=== PATIENT | male | born 1955 | race Two or more races ===

== ENCOUNTER 2023-10-05 09:28 | Observation (INO) ==
--- NOTE | 2023-09-02 10:23 | PAT Medication Instructions ---
Medication Instructions Date of Service September 02, 2023 Home Medications coenzyme Q10 100 mg capsule (CoQ-10) 100 mg PO QAM lisinopril 2.5 mg tablet 2.5 mg PO QAM metformin 500 mg tablet 500 mg PO QAM rosuvastatin 20 mg tablet 20 mg PO QAM STOP taking 2 weeks before surgery (or as soon as possible if surgery is within 2 weeks) coenzyme Q10 100 mg capsule (CoQ-10) 100 mg PO QAM DO NOT take the morning of surgery lisinopril 2.5 mg tablet 2.5 mg PO QAM metformin 500 mg tablet 500 mg PO QAM Take morning of surgery With a small sip of water, OTHERWISE NOTHING TO EAT OR DRINK AFTER MIDNIGHT: rosuvastatin 20 mg tablet 20 mg PO QAM Other Notes If you have any questions please call us at [phone] or [phone] or [phone] or [phone]
--- NOTE | 2023-09-10 11:50 | Anesthesiology Consultation ---
Date of Service September 10, 2023 Assessment & Plan (1) Encounter for pre-operative examination: - Outpatient joint assessment: Patient is currently scheduled for inpatient pathway. If re-evaluated and patient/surgeon requests outpatient pathway, patient is acceptable candidate for outpatient joint program from anesthesia standpoint pending surgeon's office assessment of pt motivation/support/completion of same day joint program preop requirements. Chart Review Chart Review: Acceptable Risk for Surgery and Patient seen in Pre Admission Testing Teaching & Discussion Pre-Anesthesia Teaching/Discussion Notes: Instructed NPO after midnight before surgery, except medications with 15 cc of water. Medication instructions provided according to the PAT guidelines. History Surgery Operation Date: 10/05/23 07:00 Proposed Procedures p Right Total Knee Arthroplasty - Spike Warren MD Height/Weight Height: 6 ft 3 in Weight: 151.7 kg Allergies Allergy/AdvReac Type Severity Reaction Status Date / Time No Known Allergies Allergy Verified 09/02/23 09:38 Medications Home Medications Medication Instructions Recorded Confirmed Last Taken coenzyme Q10 100 mg capsule 100 mg PO QAM 09/02/23 09/02/23 Unknown (CoQ-10) lisinopril 2.5 mg tablet 2.5 mg PO QAM 09/02/23 09/02/23 Unknown metformin 500 mg tablet 500 mg PO QAM 09/02/23 09/02/23 Unknown rosuvastatin 20 mg tablet 20 mg PO QAM 09/02/23 09/02/23 Unknown Past Medical History Medical History (Updated 09/10/23 @ 11:53 by Georgia Murphy PA-C) BPH (benign prostatic hyperplasia) Diabetes mellitus, type 2 NIDDM History of COVID-2021--mild symptoms, no symptoms now History of gout Hyperlipidemia Hypertension controlled, stable per pt Morbid obesity with BMI of 40.0-44.9, adult Osteoarthritis Patient denies h/o stroke, seizures, heart attack, heart failure, blood clots/DVTs or blood transfusions. Exercise / Class Metabolic Activity II 4-5 Yardwork/Stairs/Walk up hill (ambulates with cane, denies chest discomfort or shortness of breath with 1 FOS) Past Family History Family History Other No family history of adverse response to anesthesia Past Surgical History Surgical History History of colonoscopy History of tonsillectomy and adenoidectomy History of tooth extraction History of total left hip replacement Past Anesthesia History No Hx of Anesthesia Complications and No Family Hx of Anesthesia Complications History of PONV No Hx of PONV and No Hx of Motion Sickness Social History Smoking Status: Never smoker Do You Dip or Chew Tobacco: Yes (chews (advised on policy)) Hx Alcohol Use: Yes Alcohol type: beer and hard liquor alcohol intake frequency: a few times a week Hx Substance Use: No substance use type: does not use Review of Systems Snoring, denies witnessed apneas. Patient denies chest pain, shortness of breath, dyspnea on exertion, reflux, fever, chills, cough, wheezing, or palpitations. Physical Exam Vital Signs Vitals BP 124/74 P 69 TEMP 97.4 SP02 94% on RA RESP 17 Physical Patient resting comfortably in chair in no acute distress, alert and oriented, responding appropriately throughout visit Full cervical extension range of motion without pain TMD < 3 finger breadths Mallampati Score 3 Dentition: several caps/crowns, denies chipped or loose teeth, implants or bridges Lungs: normal respiratory effort. Good air movement, clear throughout to auscultation, no adventitious breath sounds Cardiac: regular rate and rhythm, no murmurs noted Carotid arteries: negative bruit bilat Lab Results Anesthesia Preop Results Results Anesthesia Widget: WBC 9.87 K/ul (4.8-10.8) 09/10/23 Hgb 15.2 g/dl (14.0-18.0) 09/10/23 Hct 46.6 % (42.0-52.0) 09/10/23 Plt 274 K/uL (130-400) 09/10/23 Na 140 mmol/L (136-145) 09/10/23 K 4.3 mmol/L (3.5-5.1) 09/10/23 Cl 105 mmol/L (98-107) 09/10/23 CO2 27 mmol/L (21-32) 09/10/23 BUN 22 mg/dl (6-23) 09/10/23 Creat 1.08 mg/dl (0.6-1.4) 09/10/23 Glucose Level 101 mg/dl (70-99(Fasting)) H 09/10/23 PT 11.6 Seconds (9.0-12.0) 09/10/23 PTT 30 Seconds (21-31) 09/10/23 INR 1.1 (0.9-1.1) 09/10/23 HA1c 6.2 % (4.5-5.6) H 09/10/23 Blood Type A Positive 09/10/23 Antibody Screen NEGATIVE 09/10/23 Testing Electrocardiogram Date: 09/10/23 NSR, rate 65 bpm Chest X-Ray Date: 09/10/23 No active disease in the chest.
[~2023-10-05 09:28] MED LIST: MIDAZOLAM HCL 1 MG/ML 2ML VIAL ONE; ROPIVACAINE 0.5% 5 MG/ML 30 ML VIAL ONE
[2023-10-05] MEDS ORDERED: BUPIVACAINE 0.5 % 5 MG/1 ML PF 10ML VIAL ONE (09:42)
[2023-10-05] MEDS: LR 60ML/HR IV SCH (10:17)
[2023-10-05] MEDS: LR 500ML BOLUS, THEN 15ML/HR IV SCH (10:17)
[2023-10-05] MEDS: dexAMETHasone**PF** 10 MG/ML VIAL IV SCH (10:26)
[2023-10-05] MEDS: CeleBREX 200 MG CAP PO SCH (10:26)
[2023-10-05] MEDS: ACETAMINOPHEN 500 MG TAB PO SCH ×2 (10:26→21:17)
[2023-10-05] MEDS: METOCLOPRAMIDE HCL 10 MG TABLET PO SCH (10:27)
[2023-10-05] MEDS: GABAPENTIN 300 MG CAP PO SCH (10:27)
[2023-10-05] MEDS: traMADol HCL 50 MG TABLET PO SCH (10:27)
[2023-10-05] MEDS: FAMOTIDINE 20 MG TAB PO SCH (10:27)
[2023-10-05] MEDS: oxyCODONE HCL 10 MG TABCR (OxyCONTIN) PO SCH (10:27)
--- NOTE | 2023-10-05 10:34 | History & Physical Bridge Note ---
Date of Service October 05, 2023 History & Physical Bridge Note I have examined the patient, reviewed the History & Physical and in the interval since the performance of the History & Physical I have noted the following changes of clinical significance: no changes noted
[2023-10-05] MEDS ORDERED: ATROPINE SULFATE 0.1 MG/ML 10ML SYR IV PRN (10:36)
[2023-10-05] MEDS ORDERED: KETOROLAC 30 MG/ML VIAL IV PRN (10:36)
[2023-10-05] MEDS ORDERED: HYDROmorphone INJ 1 MG/ML SYRINGE IV PRN ×2 (10:36→16:18)
[2023-10-05] MEDS ORDERED: ONDANSETRON INJ 2 MG/ML 2 ML VIAL IV PRN ×2 (10:36→16:18)
[2023-10-05] MEDS ORDERED: ePHEDrine sulfate 50 MG/ML AMP IV PRN (10:36)
[2023-10-05] MEDS: TRANEXAMIC ACID 1,000 MG **IV Pre-op IV SCH (10:44)
[2023-10-05] MEDS: ceFAZolin 3000MG 3,000 MG/72.5 ML BAG IV SCH (11:05)
[2023-10-05] MEDS: ORTHO JOINT ANESTHETIC ONE (11:51)
[2023-10-05] MEDS ORDERED: ePHEDrine sulfate 50 MG/5 ML SYR ONE (11:55)
[2023-10-05] MEDS ORDERED: PROPOFOL IV EMULSION 10 MG/ML 20 ML VIAL IV ONE ×5 (11:55→14:18)
[2023-10-05] MEDS ORDERED: PHENYLEPHRINE 100MCG/ML 10ML SYR IV ONE (11:55)
[2023-10-05] MEDS ORDERED: ONDANSETRON INJ 2 MG/ML 2 ML VIAL ONE ×2 (11:55→14:22)
[2023-10-05] MEDS ORDERED: fentaNYL citrate PF 100 MCG/2 ML VIAL ONE (12:59)
[2023-10-05] MEDS: VANCOMYCIN HCL 1000MG/20ML VIAL ONE (13:48)
[2023-10-05] MEDS: ROPIV 0.5% 246mg, Ketorolac 30mg, EPINEPHrine 0.5mg in NSS INFIL SCH (13:49)
--- NOTE | 2023-10-05 14:32 | Post Operative Brief Note ---
Immediate Post Op Note v1 Date of Surgery October 05, 2023 Pre & Post Diagnosis Operation Date: 10/05/23 11:10 Pre-Op Diagnosis: Right Knee Degenerative Joint Disease Post-Op Diagnosis: Right Knee Degenerative Joint Disease I identified the patient and participated in the time-out.: Yes Procedure Operation Date: 10/05/23 11:10 Actual Procedures p Right Total Knee Arthroplasty(Right) - Spike Warren MD Surgeon Spike Warren MD Dramatic Critic Kayla Forrest no resident or fellow available Estimated Blood Loss 50 Findings Consistent with Post-Op Diagnosis Specimens None Anesthesia Type MAC Spinal Regional Complications none Disposition Accompanied Patient To Recovery: No Disposition: Recovery Room
[2023-10-05] MEDS ORDERED: SODIUM CHLORIDE 0.9% PF INJ 10 ML VIAL ONE (14:37)
[2023-10-05] MEDS ORDERED: ceFAZolin 330 MG/ML 1 GM VIAL ONE (14:37)
--- NOTE | 2023-10-05 15:01 | Operative Report ---
Post Operative Report Pre & Post Diagnosis Operation Date: 10/05/23 11:10 Pre-Op Diagnosis: Right Knee Degenerative Joint Disease Post-Op Diagnosis: Right Knee Degenerative Joint Disease I identified the patient and participated in the time-out.: Yes Procedure Operation Date: 10/05/23 11:10 Actual Procedures p Right Total Knee Arthroplasty(Right) - Spike Warren MD Surgeon Spike Warren M.D. Cement Storage Worker Kayla Forrest no resident or fellow available Estimated Blood Loss 50 Findings Consistent with Post-Op Diagnosis DJD right knee Specimens bone and soft tissue Anesthesia Type MAC Spinal Regional Description of Procedure Patient was taken to the operating room placed under IV sedation with spinal anesthesia and peripheral nerve block. Time out was performed. She was given 2 g of IV Ancef for surgical prophylaxis 1 g of TXA for bleeding prophylaxis. She was prepped and draped in routine sterile fashion. I was present during the entire case, please see Dr. Warren's operative report for further details regarding today's procedure. Patient was awakened and transferred to the recovery room in stable condition. I attest to the content of the Intraoperative Record and any orders documented therein. Any exceptions are noted below.
--- OUTSIDE RECORDS SUMMARY | 2023-10-05 15:17 | External Medical Summary | Continuity of Care Document ---
Author Name Unknown Organization [facility] [address] [id number] Address [address] [place] [id number] Encounter [facility] [id number] Date(s): 09/10/23 - 09/10/23 [facility] [address] [facility] [address] [facility] [address] [place] [id number] Encounter Diagnosis Right knee DJD(Discharge Diagnosis) - 09/10/23 Discharge Disposition: Home or Self Care Attending Physician: NANCY Forrest, Kayla Avitai Referring Physician: MD Briana, Spike Jones Allergies, Adverse Reactions, Alerts No Known Allergies Medications Aleve Start: 08/01/21 8:08:00 EST Start Date: 08/01/21 Status: Ordered metFORMIN 500 mg oral tablet Start: 01/12/22 16:00:00 EDT Start Date: 01/12/22 Status: Ordered rosuvastatin 20 mg oral tablet Start: 05/12/23 13:42:00 EST Start Date: 05/12/23 Status: Ordered Mental Status 09/10/23 Barriers to Learning one year None evide nt Mandatory Health Literacy Documentation Yes Health Literacy Communication Barriers N ever Primary Language Greenlandic Problem List Condition Confirmation Course Effective Dates Status [facility] atus Informant Degenerative arthritis of knee, bilateral Confirmed Active History of hip replacement Confirmed Active Right knee DJD Confirmed Active Diagnosis Diagnosis Type Effective Dates Health Status inical Service Informant Right knee DJD Discharge Diagnosis 09/10/23 Vital Signs Most recent to oldest [Reference Range]: 1 Height 189 cm (09/10/23 10:35 AM) Patient Weight 152 kg (09/10/23 10:35 AM) Body Mass Index 42.55 kg/m2 (09/10/23 10:35 AM) Temperature [36.5-37.9 DegC] 36.4 DegC *LOW* (09/10/23 10:35 AM) Heart Rate 74 bpm (09/10/23 10:35 AM) Blood Pressure 170/80mmHg (09/10/23 10:35 AM) Cuff Pulse Pressure 90 mmHg (09/10/23 10:35 AM) Social History Social History Type Response Smoking Status Never smoked cigaret dora Sex Male Pre-OP H & P * NANCY Forrest Jennifer R: PERFORM Event Display: Pre-OP H & P Authored Date: [id number] Name:NITHYA BREAUX Patient Number:[id number] :1955 Date of Service:09/10/2023 Chief Complaint R knee pre op History of Present Illness Peggy Thompson presents today fora preoperative history and physical. He is scheduled for right total knee arthroplasty with Dr. Warren on October 05, 2023. He has pain on a daily basis. It is intermittent throughout the day and sharpness in intensity. He has no recent activity. Most of his pain is on the anterior medial aspect of the right knee. It is worse with activity. He uses a cane to assist with ambulation due to concerns that his left knee may give out. He has limited in his ability especially if walking on a harder cement surfaceswhich is about once per week. He reports start up stiffness but no significant pain at rest or at night with sleeping. He has had previous cortisone injections and viscosupplementation which had decreased the amount of pain temporarily. He is also tried [id number] NSAIDs such as Aleve which she takes on a intermittent basis for pain relief. He does have times when his pain is a 0 out of 10 but pain can escalate to an 8 or 9 out of 10 on a daily basis. Due to his failure of conservative treatment and worsening symptoms he wishes to proceed with an elective total knee arthroplasty. Review of Systems Denies any recent cough, cold, fevers, chills or flulike symptoms. He denies any lightheadedness, dizziness, syncopal episodes, headaches, migraines or seizures. Denies any bleeding or clotting disorders or history of DVT or pulmonary embolism. Denies any recent hospitalizations. Denies any historyof metal sensitivity, latex allergy or MRSA. Denies any shortness of breath or chest pain. Denies abdominal pain, heartburn, indigestion, nausea, vomiting, diarrhea or constipation. Denies any urinary tract infections. Denies any hearing or vision changes. Denies any dental problems. Physical Exam Vitals & Measurements T:36.4C HR:74(Monitored) BP:170/80 SpO2:97% HT:189cm WT:152.000kg(Dosing) WT:152kg BMI:42.55 BMI:42.55 kg/m2 Vitals:Last Updated 09/10/23 10:35 Date Temp BP Location Pulse RR SpO2 Pain 09/10/23 36.4 170/80 74 97 09/10/23 3 05/12/23 0 Height and Weight:Last Updated 09/10/23 10:35 Date BMI Wt(kg) Wt(lb) Method Ht(cm) (ft-in) Method 09/10/23 42.55 152 334 Standing Scale 189 6-2 05/12/23 42.55 152 334 Standing Scale 189 6-2 Standing 01/12/22 43.01 152 334 Standing Scale 188 6-2 General:Well-dressed, well-nourished. Normal mood and affect. Alert and oriented x3. HEENT:Head: Atraumatic, normocephalic. Eyes: Extraocular movements intact, pupils equal round and reactive to light, sclera normal. Ears: Ears grossly normal, TMs are clear normal light reflex.Nose: Nares are patent bilaterally. Throat: Oropharynx clear mucous membranes moist good dentition uvula midline. Neck:Supple, no lymphadenopathy, nontender palpation, full range of motion. Cardiac:Regular rate and rhythm, normal S1, S2. No murmurs, rubs or gallops appreciated. Lungs:Clear to auscultation bilaterally. No adventitious sounds. No accessory muscle use. Abdomen:Soft, nontender, nondistended, normal bowel sounds heard in all 4 quadrants. Extremities: Focusing on the patient'srightlower extremity: Gaitminor limp Significant VarusAlignment, right greater than left 1+DP and1+PT pulses Capillary refill less than 2 seconds Sensationintact to light touch Motor strength5/5: Knee flexion and extension/ Ankle plantarflexion and dorsiflexion/ ankle inversion and eversion/ Big toe extension Knee (right) ROM: 0/ 10/ 110 Hip ROM:Painless AbsentEffusion Trace pre-tibial edema Ligament exam: ACLIntact,Endpoint intact PCLIntact,Endpoint intact MCLIntact,Endpoint intact Fixed varus deformity without laxity Diagnostic Results I obtained and personally interpreted 4 views of both knees which shows bone on one medial compartment arthritis bilaterally and bone spurs. No fracture Assessment/Plan 1.Right knee DJD Patient is scheduled for an elective right total knee arthroplasty on October 05, [address] Warren.Risk and complications of the procedure were explained to the patient and include but are not limited to infection, pain, bleeding, scarring, nerve and blood vessel damage, wound problems, weakness, stiffness, incomplete relief of symptoms, hardware failure, loosening, wear, fracture, tendon or ligament injury, blood clots, embolisms, heart attack, stroke and . All questions were answered and informed consent was obtained. Later today at preadmission testing he will have a preoperative CBC, BMP, PT, PTT, type and screen, hemoglobin A1c, chest x-ray, EKG and leg length x-ray. He will have preoperative medical clearance from his family physician. He does not need cardiac clearance prior to surgery. He was instructed on the CHG wipes preoperatively. He has a walker and a cane for use at home after surgery. Postoperatively he would like to go home with home health. He will attend outpatient physical therapy closer to his home when able. We will place him on Eliquis 2.5 mg p.o. twice daily for 2 to 4 weeks after surgery for DVT prophylaxis. Postoperative course was discussed. All questions were answered. He knows to call with any further problems, questions or concerns. This chart was completed utilizing [employer] voice recognition software. Grammatical errors, random word insertions, pronoun errors, and in complete sentences are an occasional consequence of the system. Any questions or concerns about the content, text, or information contained within the body of this dictation should be addressed directly to the provider for clarification. Problem List/Past Medical History Ongoing Degenerative arthritis of knee, bilateral History of hip replacement Right knee DJD High cholesterol Procedure/Surgical History left total hip arthroplasty Medications Home metFORMIN(metFORMIN 500 mg oral tablet) naproxen(Aleve) rosuvastatin(rosuvastatin 20 mg oral tablet) Allergies NKA Social History Smoking Status Never smoked cigarettes Drinks approximately ETOH use. Denies recreational drug use. 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 Uses a cane to assist with ambulation. Family History Reviewed and noncontributory. Electronic Signature on File Electronically Reviewed/Signed by: Kayla Forrest PA-C Author Signature Dt/Tm:09/10/2023 02:08PM Division of Sports Medicine Electronically Reviewed/Signed by: Spike Warren MD Cosigner Signature Dt/Tm: 09/10/2023 03:51 PM Division of Sports Medicine [facility] Patient Care team information Care Team Related Persons Name: MILTON BREAUXITA Address: home [address] [place] [phone] Name: ZHANE BREAUX
--- NOTE | 2023-10-05 15:27 | Anesthesiology Progress Note ---
Date of Service October 05, 2023 Anesthesia Post Procedure Vital Signs Vital Signs: Temp Pulse Pulse Resp BP Pulse Ox O2 Del Method 10/05/23 15:20 96 H 14 130/85 95 Nasal Cannula 10/05/23 15:10 99 H 15 127/80 97 Oxymask 10/05/23 15:00 36.2 C L 99 H 15 134/79 95 Oxymask 10/05/23 10:02 36.5 C 71 20 125/80 95 Room Air O2 Flow Rate 10/05/23 15:20 4 10/05/23 15:10 14 10/05/23 15:00 14 10/05/23 10:02 Transfer of Care Handoff Completed per policy Notes Mental Status: alert / awake / arousable and participated in evaluation Nausea / Vomiting: adequately controlled Pain: adequately controlled Airway Patency, RR, SpO2: stable & adequate BP & HR: stable & adequate Hydration State: stable & adequate Neuraxial Anesthesia: was administered and sensory block is resolving Anesthetic Complications: no major complications apparent and Pt Satisfied with anesthetic care
--- NOTE | 2023-10-05 15:29 | XRay Report ---
XR knee RT 1 or 2V routine HISTORY: 68 years-old Male Surgical Post Op right knee arthroplasty COMPARISON: 09/10/2023 TECHNIQUE: 2 views of the right knee FINDINGS: Total joint arthroplasty with patellar resurfacing. Anterior midline skin yaron with expected posto perative soft tissue swelling and deep tissue air. Corticated ossifications are noted along the poste rior margin of the knee. No acute fracture or dislocation. IMPRESSION: Satisfactory alignment of the total joint arthroplasty. ACT 112: Negative or not required by law. The above report was generated using voice recognition software. It may contain grammatical, syntax o r spelling errors. Electronically signed by: Jeff Buckner M.D. 10/05/2023 3:28 PM
[2023-10-05] MEDS ORDERED: hydrALAZINE HCL 20 MG/ML VIAL IV PRN (16:18)
[2023-10-05] MEDS ORDERED: MAGNESIUM HYDROXIDE SUSP 30 ML UDC PO PRN (16:18)
[2023-10-05] MEDS ORDERED: diphenhydrAMINE 50 MG/ML VIAL IV PRN (16:18)
[2023-10-05] MEDS ORDERED: METOCLOPRAMIDE HCL INJ 5 MG/ML 2 ML VIAL IV PRN (16:18)
[2023-10-05] MEDS ORDERED: PHARMACY GLYCEMIC MGMT CONSULT PRN (16:18)
[2023-10-05] MEDS ORDERED: bisacodyL 10 MG SUPP PR PRN (16:18)
[2023-10-05] MEDS ORDERED: HYDROmorphone INJ 0.5 MG/0.5 ML SYR IV PRN (16:18)
[2023-10-05] MEDS ORDERED: NALOXONE HCL 0.4 MG/1 ML VIAL/CARP IV PRN (16:18)
[2023-10-05] MEDS: oxyCODONE HCL IR 5 MG TAB (IMMEDIATE RELEASE) PO PRN (16:23)
[2023-10-05] MEDS: oxyCODONE HCL IR 5 MG TAB (IMMEDIATE RELEASE) ONE (16:40)
[2023-10-05] MEDS ORDERED: GLUCOSE 40% GEL 15 GM TUBE PO PRN (16:45)
[2023-10-05] MEDS ORDERED: GLUCAGON FOR INJ 1 MG VIAL IM PRN (16:45)
[2023-10-05] MEDS ORDERED: GLUCOSE 10 TAB/TUBE PO PRN (16:45)
[2023-10-05] MEDS ORDERED: DEXTROSE 50% 50 ML SYRINGE IV PRN (16:45)
[2023-10-05] MEDS ORDERED: CARBOHYDRATES FOR HYPOGLYCEMIA PO PRN (16:45)
[2023-10-05] MEDS: SODIUM CHLORIDE 0.9% 1,000 ML IV SCH (17:33)
[2023-10-05] MEDS: KETOROLAC TROMETHAMINE 15 MG/ML VIAL IV SCH (17:38)
[2023-10-05] MEDS: traMADol HCL 50 MG TABLET PO PRN (18:11)
[2023-10-05] MEDS: LANTUS PER UNIT CHARGE SC ONE (18:36)
--- NOTE | 2023-10-05 19:46 | Orthopedic Progress Note ---
Date of Service October 05, 2023 Assessment & Plan (1) Status post knee replacement: Plan: Surgical results discussed. X-rays show good positioning of components without complication. The plan is postop antibiotics pain control elevation icing PT OT blood thinner starting in the morning. Diabetes consult with pharmacy. Admission and Anticipated Discharge Date Admission Date: October 05, 2023 Subjective Doing well. No problems reported. Pain is well-controlled. Physical Exam 2 Physical Exam: Dressing clean and dry. I elevated on 2 pillows. 5 out of 5 ankle and toe plantarflexion dorsiflexion inversion eversion. DP and PT pulses are 1+. Sensation is intact throughout the foot Results & Data Vital Signs (Past 12 Hours) Vital Signs Temp Pulse Pulse Pulse Resp BP Pulse Ox 10/05/23 19:14 36.4 C L 89 16 124/72 96 10/05/23 18:20 36.7 C 64 14 129/75 94 10/05/23 17:48 36.5 C 76 18 144/82 H 94 10/05/23 17:44 10/05/23 17:20 36.5 C 84 16 143/83 H 96 10/05/23 17:00 36.4 C L 88 14 152/85 H 94 10/05/23 16:30 90 14 121/80 92 10/05/23 16:15 88 16 142/65 H 93 10/05/23 16:00 86 14 112/75 92 10/05/23 15:45 89 16 107/76 93 10/05/23 15:30 36.4 C L 97 H 20 124/72 94 10/05/23 15:20 96 H 14 130/85 95 10/05/23 15:10 99 H 15 127/80 97 10/05/23 15:00 97 H 20 124/72 94 10/05/23 15:00 36.2 C L 99 H 15 134/79 95 10/05/23 10:02 36.5 C 71 20 125/80 95 O2 Del Method O2 Flow Rate 10/05/23 19:14 Room Air 10/05/23 18:20 Room Air 10/05/23 17:48 Room Air 10/05/23 17:44 Room Air 10/05/23 17:20 Nasal Cannula 2 10/05/23 17:00 Nasal Cannula 2 10/05/23 16:30 Room Air 10/05/23 16:15 Room Air 10/05/23 16:00 Room Air 10/05/23 15:45 Room Air 10/05/23 15:30 Nasal Cannula 2 10/05/23 15:20 Nasal Cannula 4 10/05/23 15:10 Oxymask 14 10/05/23 15:00 Nasal Cannula 2 10/05/23 15:00 Oxymask 14 10/05/23 10:02 Room Air
[2023-10-05] MEDS: DOCUSATE SODIUM 100 MG CAP PO SCH (20:21)
[2023-10-05] MEDS: SENNA 8.6 MG TAB PO SCH (20:21)
[2023-10-05] MEDS: INSULIN ASPART PER UNIT CHARGE SC SCH (20:26)
[2023-10-05] MEDS: TRANEXAMIC ACID / 0.7% NACL 1,000 MG/100 ML BAG IV SCH (20:59)
[2023-10-05] MEDS: ceFAZolin 2000MG 2,000 MG/15 ML SYR IV SCH (21:16)
[2023-10-06 07:20] LABS: BUN Creatinine Ratio 22.8 (10-20); Calcium 8.6 mg/dl (8.6-10.3); Creatinine Clr Calc Pharmacy 89.6 ml/min; Est GFR (African American) 67.3 ml/min; Est GFR (Non-African American) 58.1 ml/min; Potassium 4.5 mmol/L (3.5-5.1)
[2023-10-06] MEDS: MULTIVITAMIN TAB PO SCH (08:06)
[2023-10-06] MEDS: ROSUVASTATIN CALCIUM 20 MG TAB PO SCH (08:06)
[2023-10-06] MEDS: lisinopril 2.5 MG TAB PO SCH (08:06)
[2023-10-06] MEDS: dexAMETHasone 4 MG TAB PO SCH (08:06)
[2023-10-06] MEDS: APIXABAN 2.5 MG TAB PO SCH (08:06)
[2023-10-06] MEDS: LANTUS PER UNIT CHARGE SC ONE (08:09)
[2023-10-06] MEDS ORDERED: NON-FORMULARY MEDICATION (Coenzyme Q10 [Coq-10] 100 mg Capsule) PO SCH (09:00)
--- NOTE | 2023-10-06 10:05 | Pharmacy Report ---
Pharmacy Glycemic Short Note 2 - Date of Service October 06, 2023 - Glycemic Short BSG Results (Last 24 hours): 10/05/23 10/05/23 10/05/23 15:04 17:37 22:59 Glucose POC Glucose 188 H 192 H 127 H 10/06/23 10/06/23 10/06/23 05:45 06:29 07:32 Glucose 158 H POC Glucose 128 H 146 H OUTPATIENT ANTIDIABETIC REGIMEN: * Metformin 500mg Daily * A1c 6.2% 09/10/23 ASSESSMENT: * 68 yo M POD1 R TKA, type 2 DM well controlled on metformin only at home. * Oral agents are not recommended for inpatient use d/t drug interactions, changing PO intake, and difficulty titrating for acute hyper/hypoglycemia. ADA recommends re-initiating outpatient oral agents 1-2 days prior to discharge if/when appropriate if they were held on admission. * Patient received 10mg dexamethasone yesterday - had 44 units of insulin, 30 units basal, fasting blood sugar of 146mg/dl today. * Patient to have Dexamethasone 8mg PO today. Will cover with another dose of Lantus and NovoLog, may need to loose CF/CR tomorrow as steroids wear off. Likely will not need basal tomorrow unless more steroids are ordered. PLAN FOR INPATIENT GLYCEMIC CONTROL: * Hold outpatient oral diabetes medications * Basal insulin * Lantus 25 units SQ x 1 dose today with PO Dexamethasone 8mg * Bolus insulin * NovoLog per scale ACHS or Q6hrs while NPO * Goal Range: Low 110 mg/dL - High 140 mg/dL * Correction Factor: 15 mg/dL/unit * Nutritional / Prandial insulin per carb ratio of 1 unit per 5 grams CHO consumed
[2023-10-06 10:19] LABS: Hematocrit (blood only) 40.6 % (42.0-52.0); Hemoglobin 13.5 g/dl (14.0-18.0); Mean Corpuscular Hemoglobin 32.8 pg (25.0-34.0); Mean Corpuscular Hgb Conc 33.3 g/dL (32.0-36.0); Mean Corpuscular Volume 98.8 fL (80.0-100.0); Platelet Count 256 K/uL (130-400); RDW Coefficient of Variation 11.9 % (11.5-14.5); RDW Standard Deviation 43.7 fL (36.4-46.3); Red Blood Count 4.11 M/uL (4.70-6.10)
--- NOTE | 2023-10-06 10:20 | Orthopedic Progress Note ---
Date of Service October 06, 2023 Assessment & Plan (1) Status post knee replacement: Plan: POD 1-right total knee arthroplasty with Dr. Warren. Physical therapy and Occupational Therapy today. Eliquis 2.5 mg p.o. twice daily for 2 to 4 weeks after surgery for DVT prophylaxis. This was started this morning. Regular diet as ordered. Resume home medications as appropriate. Ice and elevation as needed. He may weight-bear as tolerated with the knee immobilizer when out of bed and the assistance of a walker. Home with home health today. All questions were answered. Discharge instructions were reviewed. Patient understands and agrees to the plan. Admission and Anticipated Discharge Date Admission Date: October 05, 2023 Subjective Patient is doing well. No complaints of chest pain, shortness of breath, lightheadedness, dizziness, nausea or vomiting. Denies any significant pain in his right knee. His pain is well-controlled with oral medications. He would like to go home today. Physical Exam Musculoskeletal: Exam of his right lower extremity: Dressings are clean, dry and intact. No bloody drainage evident. Right ankle has full range of motion and normal strength. Distal pulses are 1+. Toes are warm. Sensation is normal throughout the right lower extremity. His knee immobilizer is in place and was opened to adequately look at the dressings. Tolerates logrolling of his right leg. Results & Data Vital Signs (Past 12 Hours) Vital Signs Temp Pulse Pulse Resp BP Pulse Ox O2 Del Method 10/06/23 07:59 36.4 C L 72 16 126/58 L 95 Room Air 10/06/23 07:51 Room Air 10/06/23 06:00 94 Room Air 10/06/23 02:44 36.8 C 70 16 134/69 96 Nasal Cannula 10/05/23 22:48 36.9 C 65 16 120/72 96 Nasal Cannula O2 Flow Rate 10/06/23 07:59 10/06/23 07:51 10/06/23 06:00 10/06/23 02:44 2 10/05/23 22:48 2 Laboratory Results 10/06/23 10/06/23 10/06/23 Range/Units 07:32 06:29 05:45 WBC Pending RBC Pending Hgb Pending Hct Pending MCV Pending MCH Pending MCHC Pending Plt Count Pending Sodium 138 (136-145) mmol/L Potassium 4.5 (3.5-5.1) mmol/L Chloride 104 (98-107) mmol/L Carbon Dioxide 28 (21-32) mmol/L Anion Gap 6 (3-11) BUN 29 H (6-23) mg/dl Creatinine 1.27 (0.6-1.4) mg/dl Est Cr Clr Drug Dosing 89.6 ml/min Est GFR ( Amer) 67.3 ml/min Est GFR (Non-Af Amer) 58.1 ml/min BUN/Creatinine Ratio 22.8 H (10-20) Glucose 158 H (70-99(Fasting)) mg/dl POC Glucose 146 H 128 H (70-99) mg/dl Calcium 8.6 (8.6-10.3) mg/dl 10/05/23 10/05/23 10/05/23 Range/Units 22:59 17:37 15:04 WBC RBC Hgb Hct MCV MCH MCHC Plt Count Sodium (136-145) mmol/L Potassium (3.5-5.1) mmol/L Chloride (98-107) mmol/L Carbon Dioxide (21-32) mmol/L Anion Gap (3-11) BUN (6-23) mg/dl Creatinine (0.6-1.4) mg/dl Est Cr Clr Drug Dosing ml/min Est GFR ( Amer) ml/min Est GFR (Non-Af Amer) ml/min BUN/Creatinine Ratio (10-20) Glucose (70-99(Fasting)) mg/dl POC Glucose 127 H 192 H 188 H (70-99) mg/dl Calcium (8.6-10.3) mg/dl Diagnostic Findings XR knee RT 1 or 2V routine HISTORY: 68 years-old Male Surgical Post Op right knee arthroplasty COMPARISON: 09/10/2023 TECHNIQUE: 2 views of the right knee FINDINGS: Total joint arthroplasty with patellar resurfacing. Anterior midline skin yaron with expected postoperative soft tissue swelling and deep tissue air. Corticated ossifications are noted along the posterior margin of the knee. No acute fracture or dislocation. IMPRESSION: Satisfactory alignment of the total joint arthroplasty.
--- NOTE | 2023-10-06 10:29 | Discharge Summary ---
Date of Service October 06, 2023 Discharge Data Procedures Performed Operation Date: 10/05/23 11:10 Actual Procedures p Right Total Knee Arthroplasty(Right) - Spike Warren MD Hospital Course (1) Status post knee replacement: Patient was kept in observation at [facility] after undergoing an elective right total knee arthroplasty with Dr. Warren on October 05, 2023. His surgery was performed with spinal anesthesia, IV sedation and peripheral nerve block. He tolerated the procedure well without any intraoperative complications. He was given 3 g of IV Ancef for surgical prophylaxis, which was continued for 24 hours after surgery. He was given 1 g of IV TXA preoperatively for bleeding prophylaxis. He was given a second dose 6 hours after that initial dose. He may be out of bed, weight-bear as tolerated right lower extremity with the assistance of a walker. He was instructed to use his knee immobilizer for 2 days after surgery. X-rays in the recovery room of his right knee showed a stable right knee joint prosthesis with no evidence of hardware complication or fracture. Pain medications consisted of Tylenol, oxycodone, tramadol and IV Dilaudid. He was given a bowel regimen. His home medications were continued. A glycemic consult was placed for management of his diabetes while inpatient. Physical therapy and Occupational Therapy were consulted and he was seen on postoperative day 1. He did well out of bed with ambulation and ADLs and was deemed safe for discharge to home. His pain was well-controlled during his inpatient stay. He did have an elevated white blood cell count on postoperative day 1 but no evidence of infection and most likely from a surgery and steroids pre and postoperatively. He was started on Eliquis 2.5 mg p.o. twice daily on postoperative day 1 and this will be continued for 2 to 4 weeks after surgery. So he was provided with ANIBAL stockings and AV impulse boots during his inpatient stay. He did not develop any postoperative complications during his inpatient stay. On postoperative day 1 doing very well and was deemed safe for discharge to his home. He was discharged to his home in stable condition with family. Home health arrangements have been made. He will follow-up as an outpatient as scheduled.
--- NOTE | 2023-10-07 06:58 | Operative Report ---
Post Operative Report Pre & Post Diagnosis Operation Date: 10/05/23 11:10 Pre-Op Diagnosis: Right Knee Degenerative Joint Disease Post-Op Diagnosis: Right Knee Degenerative Joint Disease I identified the patient and participated in the time-out.: Yes Procedure Operation Date: 10/05/23 11:10 Actual Procedures p Right Total Knee Arthroplasty(Right) - Spike Warren MD Surgeon Spike Warren MD Coldfusion Kayla Forrest no resident or fellow available Estimated Blood Loss 50 Findings Consistent with Post-Op Diagnosis Specimens Resected bone and soft tissue from right knee Anesthesia Type MAC Spinal Regional Disposition Accompanied Patient To Recovery: No Disposition: Recovery Room Indications Clark is 68 years old and has severe arthritis of his right knee refractory to nonsurgical treatment. He wishes to have surgery. Description of Procedure Informed consent. Patient identified. He identified the operative site as the right knee. I marked with my initials. A preoperative surgical timeout was performed and her preop dose of IV antibiotics was given. He was taken to the operating room positioned supine on the operating room table. A bump was placed under the right hip and a padded post under the right calf. A tourniquet was applied to the right thigh. The leg was prepped and draped in usual sterile fashion. DVT prophylaxis intraoperatively with mechanical devices. Postop early mobility mechanical devices and Eliquis. The examination under anesthesia revealed a fixed varus deformity with approximate 10 degree flexion contracture and knee flexion to 105. Knee motion 0/10/105. The flexion contracture may have been a few degrees beyond 10 degrees. TXA given. The leg was prepped and draped in usual sterile fashion. Limb exsanguinated with the Esmarch and tourniquet inflated to 300 mmHg. I made a midline longitudinal incision followed by medial parapatellar arthrotomy. There were grade 2 and 3 changes with osteophytes of the patella. The peripatellar synovium was debrided along with the osteophytes. The synovial reflection in the lateral gutter was released. Soft tissue on the anterior aspect the distal femur was resected. The retropatellar fat pad was also debrided. An extensile medial release was performed releasing most of the MCL initially around to the posterior medial corner of the knee. Osteophytes femur and tibia were profound and were also debrided. The knee was unable to be flexed. The ACL was deficient. PCL was resected and notch osteophytes were removed. I had to do a little bit more releasing but was eventually able to get the knee subluxated and the retractor was inserted. The lateral compartment showed intact meniscus which was debrided marginal osteophytes and intact cartilage. Medially there was eburnated and warm bone and large osteophytes which were debrided. There was bipolar bone loss. The intercondylar eminences were worn. Grade 4 changes bipolar medial compartment. I drilled a pilot supervisor hole into the proximal tibia just anterior to the tibial spines and advanced an intramedullary alignment sixto down to the ankle. I then took the 3 degree cutting block and aligned with the tibial tubercle and set to cut 10 mm off of the lateral side which corresponded to a 2 mm cut medially. This guide was pinned in the place. The extra medullary alignment sixto was applied and found that the cut was going to be in varus. I therefore kept the sixto in place and aligned it to the second metatarsal and bisecting the ankle joint after removing the lateral pin and then repinned it into this position. I rechecked with the knee straight and bent and found acceptable alignment. There was now a skim cut medially and more like a 12 cut laterally. I went ahead and made this cut protecting the patellar tendon. The slope was appropriate and might of even had slightly more than 3 degrees of posterior slope. This resulted in a skim cut medially with an area of defect posteromedially. A pilot supervisor hole was drilled in the distal femur followed by insertion of the distal femoral cutting guide set at 5 degrees right knee valgus based upon preoperative templating. Due to the flexion contracture 11 mm thick cut was made. This was distal to the collateral ligaments and the cut was made. The space was a slightly asymmetric but very tight. I could not get the small spacer in place. I therefore went ahead and did more medial releasing and then recut an additional 2 mm off of the distal femur making sure that I was still distal to the collateral ligaments. I could not get the spacer in but there was still some ongoing medial tightness. I then went ahead and marked out the epicondylar axis and applied the distal femoral sizing guide. The femur sized to a 10. 3 degrees external rotation. This was pinned in the place and the cuts were made protecting the collateral ligaments. The flexion gap was rectangular and would accommodate a 5 mm thick spacer. Large posterior osteophytes were removed. The box cutting guide was applied lateralized and the box cut was made. Previously the tibia had been sized to a 10 as well. Lateralizing the tibia resulted in only about 3 to 5 mm of the medial bone defect being underneath the tibial baseplate. The extra tibial bone was marked and later part of this was resected in order to lengthen the MCL. The femoral implant was applied and the lug holes were drilled. On the tibia if the implant was lateralized and the keel was prepared with the drill and punch. Rotation was set on the tibial tubercle. The knee was then reduced with a 5 mm spacer.. Previous to this and prior to implanting the trials I rebalance the knee. This necessitated further posterior medial release and further release of the medial structures off the tibia. This then resulted in symmetric 5 mm flexion and extension gaps. The knee can be fully straighten and was in neutral alignment. There is no laxity at 0 trace LCL laxity at 20 and nothing significant at 90. Attention was turned to the patella which measured 28 mm in thickness. The 41 patella was selected. The cut was made with a residual of 17 mm. The paddle was aligned and the lug holes were drilled. The patella tracked fine with no hands technique. Previous to this the tourniquet was let down. Meticulous hemostasis was achieved. Ortho joint mix was injected in the back the knee the tibial canal was plugged. Copious pulsatile lavage was then performed. After having been down for about 20 minutes the limb was reexsanguinated with a spacer block in place and the tourniquet reinflated. 2 bags of Simplex P cement with 2 g of vancomycin were then mixed. Smears were placed on the posterior condyles. While in a doughy state the femur tibia and patella were cemented into place and the knee was held in full extension with a trial spacer until the cemented hardened. The tourniquet was then relet down and meticulous hemostasis was achieved. While cementing the remainder the Ortho joint mix was injected and irrigation was performed. Stable in full extension trace LCL laxity at mid position and no low looseness at 90. The final polyethylene was inserted after inspecting and removing cement in the back of the knee and the round tibial component as encountered. The knee was then reduced and closure performed. The arthrotomy was closed above the equator the patella with interrupted #2 FiberWire. Below the equator the patella with a running and interrupted #1 Vicryl. The skin was closed in layers with 0 and 2-0 Vicryl followed by yaron on the skin. The leg was cleaned with wet and dry sponges and a saw sterile dressing was applied Xeroform 4 x 4's ABD soft wrap and a knee immobilizer. Patient was wake from anesthesia difficulty and taken to the recovery room in stable condition. The resected bone and soft tissue were sent for specimen. There were no complications counts were correct and blood loss is estimated to be 50 cc. At the conclusion of the operation spoke to patient's informed her my findings and postop instructions were given. He can be rehabilitated according to the standard total knee protocol. Eliquis to begin the morning after surgery. He may weight-bear as tolerated. Composite patellar thickness at the conclusion of the operation was 29 mm. Reading assisted flexion with extensor mechanism closed was approximately 110 to 115 degrees. Components used were the J[employer]J attune knee a size 10 right posterior stabilized femur with a size 10 mobile-bearing keeled tibial tray a size 10 x 5 mm thick polyethylene insert and a 41 mm patella. I attest to the content of the Intraoperative Record and any orders documented therein. Any exceptions are noted below.
== END 2023-10-06 11:22 | disposition home health service (06) ==
LOC: PACUINP 09:28 → ASU 09:28 → 3E 17:44